=== PATIENT | male | born 1940 | race Caucasian/White ===

== ENCOUNTER 2021-07-10 19:33 | Emergency (ER) | payer MEDICARE, SELFPAY ==
[2021-07-10 20:01] VITALS: BP 146/89; PULSE 77; RESP 16; TEMP 36.6; O2SAT 100
--- NOTE | 2021-07-10 20:13 | ED.GENADULT ---
HPI - General Adult General Chief complaint: Animal Bite Stated complaint: Dog bite to middle Finger on right Hand Time Seen by Provider: 07/10/21 20:13 Source: patient, family (daughter Paul Kim requests she come into room and speak with staff) and RN notes reviewed Mode of arrival: ambulatory Limitations: no limitations History of Present Illness HPI narrative: 80-year-old male presents with daughter both complaints of dog bites to the right hand 3rd (middle) and 4th (ring) fingers and right wrist 1 day. ?Both the daughter and patient reports Paul was bitten at approximately 16:00 on 07/09/2021. ?Paul reports dogs were sitting on his lap while he was sitting in the recliner and they started fighting, biting while them. ?No treatment. ?Mild abrasions with discomfort, swelling, and redness. ?Denies tingling or numbness. ?Denies immobility. ?Exacerbating factor consists of movement of fingers. ?No relieving factors. RIGHT Hand is the dominant hand. Denies altered sensation, back pain, neck pain, and suspected foreign body. ?Denies falling, hitting head, or loss of consciousness. ?Remains active. ?Tetanus vaccine NOT up-to-date, will update today. ?Familiar with the dog and owner spa director says shoots are up to date, dogs belong to Paul. ?Remains active. ?The patient reports he has not been diagnosed with COVID-19. ?The patient reports he received 2 Moderna COVID-19 vaccines. ?The patient reports he is not waiting for the results of a COVID-19 lab test. ?The patient reports he does not have weakness, fatigue, or myalgia. ?The patient reports he does not have a new or worsening cough or shortness of breath. ?The patient reports he does not have any rhinorrhea, congestion, loss of taste, sore throat, nausea, vomiting, abdominal pain, and diarrhea. ?Denies recent traveling. ?Denies concerns for COVID-19 or exposures. ?At this time, the patient is not suspected of having COVID-19.? Some parts of this dictation were generated by voice recognition software and may contain typographical and/or grammatical inaccuracies. Related Data Home Medications Medication Instructions Recorded Confirmed acetaminophen 650 mg PO Q12H 07/10/21 07/10/21 apixaban [Eliquis] 5 mg PO DAILY 07/10/21 07/10/21 docusate sodium 100 mg PO BID 07/10/21 07/10/21 donepezil 5 mg PO HS 07/10/21 07/10/21 furosemide 20 mg PO DAILY 07/10/21 07/10/21 metoprolol succinate 100 mg PO DAILY 07/10/21 07/10/21 simvastatin 20 mg PO HS 07/10/21 07/10/21 tamsulosin 0.4 mg PO HS 07/10/21 07/10/21 tramadol 50 mg PO BID 07/10/21 07/10/21 Allergies Allergy/AdvReac Type Severity Reaction Status Date / Time carvedilol [From Coreg] Allergy Unknown Verified 07/10/21 20:00 Review of Systems Review of Systems: CONSTITUTIONAL: Denies fever, chills, sweats. EYES: Denies visual changes, redness, discharge. ENT: Denies rhinorrhea, congestion, sore throat, otalgia. CARDIOVASCULAR: Denies chest pain, palpitations, edema. RESPIRATORY: Denies dyspnea, wheezing, cough. GASTROINTESTINAL: Denies abdominal pain, nausea, vomiting, diarrhea. SKIN: Denies rash or itching. Complaints of dog bites to the right hand 3rd (middle) and 4th (ring) fingers and right wrist. No drainage MUSCULOSKELETAL: Denies acute back pain, joint pain, or myalgia. NEUROLOGIC: Denies numbness or focal weakness. PSYCHIATRIC: Denies anxiety or depression. All other systems reviewed are negative, except as documented in HPI and below. [facility] Past Medical History Medical History Alzheimers disease COPD (chronic obstructive pulmonary disease) Diabetes Heart problem Hernia [place] (hard of hearing) Smoker in home Surgical History Surgical History (Updated 07/10/21 @ 20:41 by NIYAH Musa) History of hernia surgery History of knee surgery Family History Family History (Updated 07/10/21 @ 20:58 by NIYAH Musa) Father Heart disease Mother Breast cancer Social History Soc
[2021-07-10] MEDS: TETANUS,DIPHTHERIA,AC PERTUSSIS ADULT (0.5 ML) BOOSTRIX IM (20:20)
== END 2021-07-10 20:55 | disposition home or self-care (01) ==
PROVIDERS: Emergency Provider Nurse Practitioner Family; PCP Internal Medicine Geriatric Medicine
DX: L08.9 Local infection of the skin and subcutaneous tissue, unspecified (principal); S60.413A Abrasion of left middle finger, initial encounter; W54.0XXA Bitten by dog, initial encounter; Z23 Encounter for immunization; F17.210 Nicotine dependence, cigarettes, uncomplicated; G30.9 Alzheimer's disease, unspecified; F02.80 Dementia in other diseases classified elsewhere, unspecified severity, without behavioral disturbance, psychotic disturbance, mood disturbance, and anxiety; J44.9 Chronic obstructive pulmonary disease, unspecified
CPT/HCPCS: 90471; 90715; 99213; G0463